=== PATIENT | male | born 1970 | race Caucasian/White ===

== ENCOUNTER 2017-09-16 05:02 | Emergency (ER) | payer BC ==
[~2017-09-16] VITALS: Ht 185.4 cm; Wt 108.2 kg
[~2017-09-16 05:02] MED LIST: LORTA5; Z.0.NO CURRENT MEDS
[2017-09-16 05:08] VITALS: BP 135/91; PULSE 62; RESP 22; TEMP 95.7; O2SAT 98
[2017-09-16] MEDS ORDERED: SODIUM CHLOR 0.9% 1000 ML INJ 1,000 ML IV ONE (05:17)
[2017-09-16 05:18] VITALS: BP 138/90; PULSE 66; RESP 18; TEMP 96.7; O2SAT 98
--- NOTE | 2017-09-16 05:22 | PD ---
HPI Chief Complaint: Abdominal Pain Time Seen by Provider: 05:17 Travel History International Travel<30 days: No Contact w/Intl Traveler<30days: No Traveled to known affect area: No History of Present Illness HPI The patient is a 47-year-old male with a history of urinary stones who complains of a similar pain on his right side, sharp with sudden onset beginning at about 4 AM this morning. He does have slight nausea without vomiting. He denies any dysuria, frequency or urgency. PFSH Past Medical History Diminished Hearing: No Musculoskeletal: Yes (CHRONIC BACK, DEGENERATIVE L4-S1 W/ PROTRUSIONS.) Past Surgical History Eye Surgery: Yes (LEFT CORNEAL TRANSPLANT 2001) Social History Alcohol Use: No Tobacco Use: No Substance Use: No Allergies-Medications (Allergen,Severity, Reaction): Coded Allergies: No Known Allergies (Verified Allergy, Unknown, 09/16/17) Reported Meds & Prescriptions Reported Meds & Active Scripts Active No Active Prescriptions or Reported Medications Review of Systems Except as stated in HPI: all other systems reviewed are Neg Physical Exam Narrative GENERAL: The patient is alert, oriented 3 in moderate to severe distress with his right flank discomfort. His vital signs show temperature 95.7 with blood pressure 135/91 but are otherwise normal. SKIN: Focused skin assessment warm/dry. HEAD: Atraumatic. Normocephalic. EYES: Pupils equal and round. No scleral icterus. No injection or drainage. ENT: No nasal bleeding or discharge. Mucous membranes pink and moist. NECK: Trachea midline. No JVD. CARDIOVASCULAR: Regular rate and rhythm. No murmur appreciated. RESPIRATORY: No accessory muscle use. Clear to auscultation. Breath sounds equal bilaterally. GASTROINTESTINAL: Abdomen soft, with tenderness to direct palpation on the right UVJ area and the abdomen is nondistended. Hepatic and splenic margins not palpable. No guarding or rebound is present. MUSCULOSKELETAL: No obvious deformities. No clubbing. No cyanosis. No edema. NEUROLOGICAL: Awake and alert. No obvious cranial nerve deficits. Motor grossly within normal limits. Normal speech. PSYCHIATRIC: Appropriate mood and affect; insight and judgment normal. Data Data Last Documented VS Vital Signs Date Time Temp Pulse Resp B/P (MAP) Pulse Ox O2 Delivery O2 Flow Rate FiO2 09/16/17 06:22 58 18 124/84 (97) 97 Room Air 09/16/17 05:18 96.7 Orders Orders Complete Blood Count With Diff (12/11/17 05:17) Basic Metabolic Panel (Bmp) (09/16/17 05:17) Urinalysis - C+S If Indicated (09/16/17 05:17) Ct Abd/Pel W/O Iv Contrast (09/16/17 05:17) Ecg Monitoring (09/16/17 05:17) Iv Access Insert/Monitor (09/16/17 05:17) Ketorolac Inj (Toradol Inj) (09/16/17 05:30) Ondansetron Inj (Zofran Inj) (09/16/17 05:30) Sodium Chloride 0.9% Flush (Ns Flush) (09/16/17 05:30) Sodium Chlor 0.9% 1000 Ml Inj (Ns 1000 M (09/16/17 05:17) Hydromorphone Pf Inj (Dilaudid Pf Inj) (09/16/17 05:30) Tamsulosin (Flomax) (09/16/17 05:30) Ondansetron Inj (Zofran Inj) (09/16/17 06:30) Hydromorphone Pf Inj (Dilaudid Pf Inj) (09/16/17 06:30) Hydromorphone Pf Inj (Dilaudid Pf Inj) (09/16/17 06:30) Labs Laboratory Tests Test 09/16/17 05:30 09/16/17 06:10 White Blood Count 7.1 TH/MM3 Red Blood Count 5.41 MIL/MM3 Hemoglobin 15.7 GM/DL Hematocrit 47.8 % Mean Corpuscular Volume 88.2 FL Mean Corpuscular Hemoglobin 28.9 PG Mean Corpuscular Hemoglobin Concent 32.8 % Red Cell Distribution Width 12.1 % Platelet Count 307 TH/MM3 Mean Platelet Volume 7.2 FL Neutrophils (%) (Auto) 55.8 % Lymphocytes (%) (Auto) 31.3 % Monocytes (%) (Auto) 7.4 % Eosinophils (%) (Auto) 4.8 % Basophils (%) (Auto) 0.7 % Neutrophils # (Auto) 4.1 TH/MM3 Lymphocytes # (Auto) 2.2 TH/MM3 Monocytes # (Auto) 0.5 TH/MM3 Eosinophils # (Auto) 0.3 TH/MM3 Basophils # (Auto) 0.0 TH/MM3 CBC Comment DIFF FINAL Differential Comment Blood Urea Nitrogen 18 MG/DL Creatinine 0.92 MG/DL Random Glucose 129 MG/DL Calcium Level 8.5 MG/DL Sodium Level 140 MEQ/L Potassium Level 3.7 MEQ/L Chloride Level 107 MEQ/L Carbon Dioxide Level 24.6 MEQ/L Anion Gap 8 MEQ/L Estimat Glomerular Filtration Rate 88 ML/MIN Urine Color BROWN Urine Turbidity CLOUDY Urine pH 5.0 Urine Specific [place] 1.025 Urine Protein 30 mg/dL Urine Glucose (UA) NEG mg/dL Urine Ketones NEG mg/dL Urine Occult Blood LARGE Urine Nitrite NEG Urine Bilirubin NEG Urine Leukocyte Esterase NEG Urine RBC INNUM /hpf Urine WBC 3-5 /hpf Urine Squamous Epithelial Cells 0-5 /hpf Urine Amorphous Sediment LARGE Urine Mucus FEW /lpf Microscopic Urinalysis Comment CULT NOT INDICATED MDM Medical Decision Making Medical Screen Exam Complete: Yes Emergency Medical Condition: Yes Medical Record Reviewed: Yes Interpretation(s) The CT abdomen/pelvis without IV contrast shows a 2 mm calcified stone in the proximal right ureter. The CBC is normal. The basic metabolic profile shows a GFR of 88 but is otherwise unremarkable. The urine shows cloudy turbidity, brown in color, large blood, innumerable red cells but is otherwise normal and culture is not indicated. Differential Diagnosis Ureteral stone, urinary tract infection, colitis, appendicitis, electrolyte disorder, dehydration Narrative Course The patient has a right ureteral stone with intermittent symptoms. The stone is likely moving down the ureter. Plan: He'll be given Flomax, ibuprofen, Compazine and Percocet. He needs to follow-up with a urologist, call later today for an appointment. Diagnosis Primary Impression: Right ureteral calculus Med/Other Pt SpecificInfo: Prescription(s) given Scripts Ibuprofen (Ibuprofen) 800 Mg Tab 800 MG PO TID, #44 TAB 0 Refills Prov: Jesus Busch MD 09/16/17 Oxycodone-Acetaminophen (Percocet) 7.5-325 mg Tab 1 TAB PO Q4H Y for PAIN, #30 TAB 0 Refills Prov: Jesus Busch MD 09/16/17 Prochlorperazine Maleate (Prochlorperazine Maleate) 10 Mg Tab 10 MG PO Q6H Y for NAUSEA OR VOMITING, #30 TAB 0 Refills Prov: Jesus Busch MD 09/16/17 Tamsulosin (Flomax) 0.4 Mg Cap 0.4 MG PO HS for Manage Prostate Problems, #30 CAP 0 Refills Prov: Jesus Busch MD 09/16/17 Disposition: 01 DISCHARGE HOME Condition: Stable Jesus Busch MD Sep 16, 2017 05:22
[2017-09-16] MEDS ORDERED: ONDANSETRON HCL 4 MG/2 ML VIAL IV PUSH ONE (05:30)
[2017-09-16] MEDS ORDERED: SODIUM CHLORIDE 0.9% FLUSH 10 ML FLUSH IVF PRN (05:30)
[2017-09-16] MEDS ORDERED: HYDROmorphone HCL PF 1 MG/ML VIAL IV PUSH ONE (05:30)
[2017-09-16] MEDS ORDERED: TAMSULOSIN HCL 0.4 MG CAP PO ONE (05:30)
[2017-09-16] MEDS ORDERED: KETOROLAC TROMETHAMINE 30 MG/ML (IVP) VIAL IV PUSH ONE (05:30)
[2017-09-16 05:46] LABS: AUTOMATED NEUTROPHIL # 4.1 TH/MM3 (1.8-7.7); BASOPHIL % 0.7 % (0.0-2.0); EOSINOPHIL # 0.3 TH/MM3 (0-0.4); EOSINOPHIL % 4.8 % (0.0-4.0); HEMATOCRIT 47.8 % (39.0-51.0); LYMPH % 31.3 % (9.0-44.0); LYMPHOCYTE # 2.2 TH/MM3 (1.0-4.8); MEAN CELL VOLUME 88.2 FL (80.0-100.0); MEAN CORPUSCULAR HEMOGLOBIN 28.9 PG (27.0-34.0); MEAN CORPUSCULAR HGB CONC 32.8 % (32.0-36.0); MONO % 7.4 % (0.0-8.0); NEUT % 55.8 % (16.0-70.0); PLATELET COUNT 307 TH/MM3 (150-450); RED BLOOD COUNT 5.41 MIL/MM3 (4.50-5.90); RED CELL DISTRIBUTION WIDTH 12.1 % (11.6-17.2); WHITE BLOOD COUNT 7.1 TH/MM3 (4.0-11.0)
[2017-09-16 05:50] LABS: HEMO FLAGS DIFF FINAL
[2017-09-16 06:15] LABS: POTASSIUM 3.7 MEQ/L (3.5-5.1)
[2017-09-16 06:18] LABS: BICARBONATE 24.6 MEQ/L (21.0-32.0)
[2017-09-16 06:19] LABS: BLOOD, URINE LARGE (NEG); GLUCOSE,URINE NEG (NEG); KETONE, URINE NEG (NEG); NITRITE,URINE NEG (NEG)
[2017-09-16 06:22] VITALS: BP 124/84; PULSE 58; RESP 18; O2SAT 97
[2017-09-16 06:26] LABS: URINE COLOR BROWN (YELLW/STRAW)
[2017-09-16 06:27] LABS: COMMENT (UR) CULT NOT INDICATED; CULTURE IF INDICATED CULT NOT INDICATED; MUCUS URINE FEW /lpf (OCC); RBC, URINE INNUM /hpf (0-3); SQUAMOUS EPITHELIAL CELL URINE 0-5 /hpf (0-5)
[2017-09-16] MEDS ORDERED: ONDANSETRON HCL 4 MG/2 ML VIAL IV ONE (06:30)
[2017-09-16] MEDS ORDERED: HYDROmorphone HCL PF 1 MG/ML VIAL IVP ONE (06:30)
[2017-09-16] MEDS ORDERED: HYDROmorphone HCL PF 2 MG/ML VIAL IV ONE (06:30)
--- NOTE | 2017-09-16 06:32 | RADRPT ---
EXAM DATE/TIME: 09/16/2017 05:34 [facility] COMPARISON: CT ABDOMEN & PELVIS W/O CONTRAST, November 23, 2012, 10:38. INDICATIONS : Right lower abdominal pain. ORAL CONTRAST: No oral contrast ingested. RADIATION DOSE: 20.79 CTDIvol (mGy) MEDICAL HISTORY : None SURGICAL HISTORY : None. ENCOUNTER: Initial ACUITY: 1 day PAIN SCALE: 8/10 LOCATION: Right lower quadrant TECHNIQUE: Renal colic protocol post op Volumetric scanning of the abdomen and pelvis was performed. Using auto mated exposure control and adjustment of the mA and/or kV according to patient size, radiation dose w as kept as low as reasonably achievable to obtain optimal diagnostic quality images. DICOM format im age data is available electronically for review and comparison. FINDINGS: There is a 2 mm calcified stone in the proximal right ureter without evidence of hydronephrosis. No additional calcified stones in the collecting system of the right kidney. On the left side, there ar e no calcified stones or hydronephrosis. Left ureter is normal dimension. Urinary bladder margins a re smooth and no intraluminal calcifications. Small fat containing bilateral inguinal hernias. No dilated loops of small or large bowel. The appe ndix is identified in the right lateral abdomen has a normal appearance. No calcified gallstones. V isualized portion of the pancreas liver, and spleen is unremarkable. Small hiatus hernia top Visualized lower lungs are clear. Wide windows for bony detail demonstrate the osseous structures to be intact. CONCLUSION: 2 mm nonobstructing stone in the proximal right ureter. Hector Jo MD on September 16, 2017 at 6:27 Board Certified Radiologist. This report was verified electronically.
[2017-09-16] MEDS ORDERED: IBUP1TAB7 PO (07:09)
[2017-09-16] MEDS ORDERED: PERC7.5T13 PO (07:09)
[2017-09-16] MEDS ORDERED: PROC10TA PO (07:09)
[2017-09-16] MEDS ORDERED: TAMS5CAP PO (07:09)
== END 2017-09-16 07:24 | disposition home or self-care (01) ==
LOC: PHED 05:02
DX: N20.1 Calculus of ureter (principal)
CPT/HCPCS: 74176; 80048; 81001; 85025; 96361; 96374; 96375; 99285; J1170; J1885; J2405; J7030